=== PATIENT | female | born 1995 | race Caucasian/White ===

== ENCOUNTER 2018-03-04 23:43 | Emergency (ER) | payer SELFPAY ==
[~2018-03-04] VITALS: Ht 165.1 cm; Wt 49.9 kg
[2018-03-05] VITALS: BP_SYST 111
[2018-03-05] MEDS ORDERED: fentaNYL CITRATE/PF 100 MCG/2 ML AMP IM ONE (00:30)
[2018-03-05] MEDS ORDERED: GENTAMICIN SULFATE 0.3% OPHT. 5 ML DROPS OP ONE (00:30)
[2018-03-05 01:15] VITALS: BP_SYST 114
[2018-03-05] MEDS ORDERED: LORazepam 1 MG TABLET PO ONE (01:15)
== END 2018-03-05 00:15 | disposition home or self-care (01) ==
LOC: SED 23:43
DX: S60.221A Contusion of right hand, initial encounter (principal); H00.026 Hordeolum internum left eye, unspecified eyelid; H10.9 Unspecified conjunctivitis; F41.9 Anxiety disorder, unspecified; Z88.5 Allergy status to narcotic agent; Z88.8 Allergy status to other drugs, medicaments and biological substances; W22.8XXA Striking against or struck by other objects, initial encounter; Y93.89 Activity, other specified; Y92.89 Other specified places as the place of occurrence of the external cause; Y99.8 Other external cause status
CPT/HCPCS: 29125; 73130; 96372; 99284; J3010